=== PATIENT | male | born 1975 ===

== ENCOUNTER 2017-07-04 18:13 | Emergency (ER) | payer MEDICAID ==
--- NOTE | 2017-07-04 19:11 | C.PDOC ---
History Of Present Illness 41 year old female presents to the ED c/o mid abdominal pain for the past 3 days. Patient also states he has been having frequent stool with occasional colro change. Patient describes his pain as dull and crampy. Patient denies fever, chill, nausea, vomit, dysuria, hematuria. Time Seen by Provider: 07/04/17 19:10 Chief Complaint (Nursing): Abdominal Pain History Per: Patient History/Exam Limitations: no limitations Onset/Duration Of Symptoms: Days (3) Current Symptoms Are (Timing): Still Present Severity: None Location Of Pain/Discomfort: Epigastric Radiation Of Pain To:: None Quality Of Discomfort: Dull, Cramping Associated Symptoms: denies: Nausea, Vomiting Exacerbating Factors: None Alleviating Factors: None Recent travel outside of the [place]: No Additional History Per: Patient Past Medical History Reviewed: Historical Data, Nursing Documentation, Vital Signs Vital Signs: Last Vital Signs Temp 98.1 F 07/04/17 18:25 Pulse 77 07/04/17 18:25 Resp 16 07/04/17 18:25 BP 132/81 07/04/17 18:25 Pulse Ox 100 07/04/17 20:46 - Medical History PMH: No Chronic Diseases Surgical History: No Surg Hx Family History: States: Unknown Family Hx - Social History Hx Alcohol Use: No Hx Substance Use: No - Immunization History Hx Tetanus Toxoid Vaccination: No Hx Influenza Vaccination: No Hx Pneumococcal Vaccination: No Review Of Systems Constitutional: Negative for: Fever, Chills Cardiovascular: Negative for: Chest Pain Respiratory: Negative for: Cough, Shortness of Breath Gastrointestinal: Positive for: Abdominal Pain. Negative for: Vomiting, Diarrhea Skin: Negative for: Rash Neurological: Negative for: Weakness, Numbness Physical Exam - Physical Exam Appears: Non-toxic, No Acute Distress Skin: Warm, Dry Head: Normacephalic Eye(s): bilateral: Normal Inspection Oral Mucosa: Moist Neck: Supple Chest: Symmetrical Cardiovascular: Rhythm Regular Respiratory: No Rales, No Rhonchi, No Wheezing Gastrointestinal/Abdominal: Soft, Tenderness (dull crampy mid epigastric), No Guarding, No Rebound Back: Normal Inspection Extremity: Normal ROM, Capillary Refill (< 2 seconds) Extremity: Bilateral: Atraumatic, Normal Color And Temperature Pulses: Left Dorsalis Pedis: Normal, Right Dorsalis Pedis: Normal Neurological/Psych: Oriented x3, Normal Speech Gait: Steady ED Course And Treatment - Laboratory Results Result Diagrams: 07/04/17 19:31 07/04/17 19:31 O2 Sat by Pulse Oximetry: 100 (ON RA) Pulse Ox Interpretation: Normal - CT Scan/US CT abd/pelvis Other Rad Studies (CT/US): Read By Radiologist, Radiology Report Reviewed CT/US Interpretation: IMPRESSION: Cirrhosis with splenomegaly and varices; limited visualization of the pancreatic head,. correlation with enzymes advised to exclude pancreatitis; possible enterocolitis; gastric wall. prominence, true thickening versus underdistention. Additional nonemergent findings as described above. Progress Note: Plan: - CT abd/pelvis. - Labs. - IV fluids. - UA Reevaluation Time: 21:22 Reassessment Condition: Improved Disposition Counseled Patient/Family Regarding: Studies Performed, Diagnosis, Need For Followup - Disposition Referrals: Shanice Delacruz MD [Staff Provider] - Disposition: HOME/ ROUTINE Disposition Time: 19:10 Condition: FAIR Instructions: Pancreatitis (DC), Cirrhosis (DC) Forms: [employer] (Turkish) - Clinical Impression Clinical Impression: Abdominal pain, Pancreatitis, Cirrhosis - Scribe Statement The provider has reviewed the documentation as recorded by the Scribe Dejan Garcia All medical record entries made by the Scribe were at my direction and personally dictated by me. I have reviewed the chart and agree that the record accurately reflects my personal performance of the history, physical exam, medical decision making, and the department course for this patient. I have also personally directed, reviewed, and agree with the discharge instructions and disposition.
[2017-07-04] MEDS ORDERED: Sodium Chloride 0.9% 1,000 ML IV ONE (19:12)
[2017-07-04 19:34] LABS: HEMOGLOBIN 12.7 g/dL (12.0-18.0); MEAN CORPUSCULAR HGB CONC 34.9 g/dL (33.0-37.0); MONO # 1.4 K/uL (0.0-0.8); NRBC % 0.1 % (0.0-2.0); RED CELL DISTRIBUTION WIDTH 16.7 % (11.5-14.5)
[2017-07-04 19:42] LABS: BASO # 0.1 K/uL (0.0-0.2); BASO % 0.7 % (0.0-2.0); EOS # 0.3 K/uL (0.0-0.7); EOS % 3.9 % (0.0-4.0); INR 1.7; LYMPH # 2.9 K/uL (1.0-4.3); LYMPH % 33.7 % (20.0-40.0); MEAN CELL VOLUME 88.6 fL (80.0-94.0); MEAN PLATELET VOLUME 9.1 fL (7.2-11.7); MONO % 16.1 % (0.0-10.0); NEUT # 3.9 K/uL (1.8-7.0); NEUT % 45.6 % (50.0-75.0); PROTHROMBIN TIME 18.3 SECONDS (9.7-12.2); RBC 4.11 Mil/uL (4.40-5.90); WHITE BLOOD COUNT 8.6 K/uL (4.8-10.8)
[2017-07-04 19:43] LABS: SQUAMOUS EPITHIAL < 1 /hpf (0-5); URINE BILIRUBIN NEGATIVE (NEGATIVE); URINE BLOOD NEGATIVE (NEGATIVE); URINE CLARITY Clear (Clear); URINE COLOR Amber (YELLOW); URINE GLUCOSE (UA) NORMAL (Normal); URINE LEUKOCYTE ESTERASE NEG Leu/uL (Negative); URINE PROTEIN NEGATIVE (NEGATIVE)
[2017-07-04 19:50] LABS: ALB/GLOB RATIO 0.7 (1.0-2.1); ALBUMIN 3.1 g/dL (3.5-5.0); ALT/SGPT 139 U/L (21-72); AST/SGOT 189 U/L (17-59); BLOOD UREA NITROGEN 10 mg/dL (9-20); GFR AFRICAN-AMERICAN > 60; GFR NON-AFRICAN AMERICAN > 60; LIPASE 391 U/L (23-300)
--- NOTE | 2017-07-04 20:43 | CT ---
EXAM: CT Abdomen and Pelvis Without Intravenous Contrast EXAM DATE/TIME: 07/04/2017 7:29 PM CLINICAL HISTORY: 41 years old, male; Pain; Abdominal pain; Generalized; Additional info: Abd pain, diarrhea, moucus TECHNIQUE: Axial computed tomography images of the abdomen and pelvis without intravenous contrast. All CT scans at this facility use one or more dose reduction techniques, viz.: automated exposure control; ma/kV adjustment per patient size (including targeted exams where dose is matched to indication; i.e. head); or iterative reconstruction technique. Coronal and sagittal reformatted images were created and reviewed. COMPARISON: There are no prior studies for comparison. FINDINGS: Lung bases: Heart size is normal. There is minimal coronary artery calcification. There is a small hiatal hernia. There is atelectasis/scarring at the lung bases. ABDOMEN: Liver: Hepatic contours are nodular. Gallbladder and bile ducts: Gallbladder is incompletely distended which accentuates the gallbladder wall. Gallbladder wall appears mildly thickened. Common duct is not well demonstrated. Pancreas: Talar body the pancreas are unremarkable. Pancreatic head is poorly defined. Spleen: The spleen is enlarged. Adrenals: There is adrenal thickening bilaterally. Kidneys and ureters: unremarkable Stomach and bowel: Stomach is incompletely distended which accentuates the gastric wall. There is mild duodenal wall prominence. Duodenum is mildly distended. Bowel rotation is normal. Small bowel is mildly distended with air. There is mild fold prominence. Ileocecal region is unremarkable. Appendix and terminal ileum are unremarkable.Colon is incompletely distended which limits evaluation. There is mild colonic wall thickening There is scattered diverticulosis PELVIS: Appendix: See stomach and bowel Bladder: Bladder is incompletely distended. Reproductive: Seminal vesicles and prostate are unremarkable. ABDOMEN and PELVIS: Intraperitoneal space: There is no free air. There is no significant fluid. Bones/joints: There are multiple bilateral old rib fractures There is partial ankylosis of the left sacroiliac joint. There are multiple Schmorl's nodes. Soft tissues: There is a small fat containing umbilical hernia. Vasculature: There are calcified phleboliths. Serpiginous structures in the upper abdomen and posterior mediastinum suggest varices. There may be retroperitoneal varices. Lymph nodes: There is shotty adenopathy. IMPRESSION: Cirrhosis with splenomegaly and varices; limited visualization of the pancreatic head, correlation with enzymes advised to exclude pancreatitis; possible enterocolitis; gastric wall prominence, true thickening versus underdistention Additional nonemergent findings as described above.
[2017-07-04] MEDS ORDERED: Morphine 4 MG/ML VIAL ONE (21:20)
[2017-07-04 21:33] VITALS: BP 124/85; PULSE 80; RESP 18; TEMP 97.8; O2SAT 98
== END 2017-07-04 21:51 | disposition home or self-care (01) ==
LOC: C.ER 18:13
DX: K85.90 Acute pancreatitis without necrosis or infection, unspecified (principal); K74.60 Unspecified cirrhosis of liver; R10.13 Epigastric pain
CPT/HCPCS: 74176; 80053; 81001; 83690; 85025; 85610; 85730; 96361; 96374; 99284; J2270; J7030

== ENCOUNTER 2018-01-20 14:09 | Emergency (ER) | payer MEDICAID ==
[2018-01-20 14:22] VITALS: BMI 32.1
[2018-01-20 14:24] VITALS: BP 134/68; PULSE 78; RESP 18; TEMP 98.5; O2SAT 97
--- NOTE | 2018-01-20 20:47 | C.PDOC ---
History Of Present Illness 42 year old male presents to the ED for evaluation of a resolving penile rash which began around 2 weeks ago. Patient reports slight pain to the area. He admits to being sexually active with women, with occasional protection use. Patient denies fever, chills, vomiting, dysuria, penile discharge. Time Seen by Provider: 01/20/18 14:27 Chief Complaint (Nursing): Male Genitourinary History Per: Patient History/Exam Limitations: no limitations Onset/Duration Of Symptoms: Other (2 weeks ) Current Symptoms Are (Timing): Better Quality Of Discomfort: "Pain" Associated Symptoms: denies: Fever, Chills, Vomiting, Urinary Symptoms Additional History Per: Patient Past Medical History Reviewed: Historical Data, Nursing Documentation, Vital Signs Vital Signs: Last Vital Signs Temp 98.5 F 01/20/18 14:22 Pulse 78 01/20/18 14:22 Resp 18 01/20/18 14:22 BP 134/68 01/20/18 14:22 Pulse Ox 97 01/20/18 14:22 - Medical History PMH: Anemia (IRON DEFICIENCY VIT D DEFICIENCY), Asthma, Fractures (RIBS JAW), Hepatitis (C) Denies: HIV, HTN, Chronic Kidney Disease, Sexually Transmitted Disease Surgical History: No Surg Hx - [facility] Procedures ALCOHOL DETOXIFICATION (08/19/14) CONTINUOUS INVASIVE MECHANICAL VENTILATION =/>96 CONSEC HRS (08/19/14) DETOXIFICATION SERVICES FOR SUBSTANCE ABUSE TREATMENT (08/18/15) DRAINAGE OF PERITONEAL CAVITY, PERCUTANEOUS APPROACH (04/01/17) GROUP CERTIFIED PHARMACY TECHNICIAN FOR SUBSTANCE ABUSE TREATMENT, PSYCHOEDUCATION (04/16/16) INDIV PSYCHOTHERAPY FOR SUBSTANCE ABUSE TREATMENT, SUPPORT (04/16/16) INSERT ENDOTRACHEAL TUBE (08/19/14) MEDS MGMT FOR SUBSTANCE ABUSE TREATMENT, OTH REPL MED (04/16/16) TRANSFUSE NONAUT FROZEN PLASMA IN PERIPH VEIN, PERC (04/01/17) Family History: States: Unknown Family Hx - Social History Hx Tobacco Use: Yes Hx Alcohol Use: No (3 bottle of rum/day) Hx Substance Use: No - Immunization History Hx Tetanus Toxoid Vaccination: No Hx Influenza Vaccination: Yes Hx Pneumococcal Vaccination: No Review Of Systems Constitutional: Negative for: Fever, Chills Gastrointestinal: Negative for: Vomiting Genitourinary: Positive for: Penile Pain. Negative for: Dysuria, Penile Discharge Skin: Positive for: Rash (penile ) Physical Exam - Physical Exam Appears: Non-toxic, No Acute Distress Skin: Normal Color, Warm, Dry Male Genital: No Circumcised, Other (Petechiae noted, area is mildly tender to palpation. no discharge noted ) Extremity: Normal ROM Neurological/Psych: Oriented x3, Normal Speech, Normal Cognition ED Course And Treatment O2 Sat by Pulse Oximetry: 97 Medical Decision Making Medical Decision Making: Progress: On reassessment, patient is resting comfortably, showing no signs of distress and is stable for discharge. Patient is advised to f/u with his PMD within 1-2 days for further evaluation. Advised to return to the ED if symptoms persist or worsen. Disposition - Disposition Referrals: Geovanna Tineo, [Non-Staff] - Disposition: HOME/ ROUTINE Disposition Time: 14:45 Condition: GOOD Additional Instructions: RANDI MILLARD, thank you for letting us take care of you today. The emergency medical care you received today was directed at your acute symptoms. If you were prescribed any medication, please fill it and take as directed. It may take several days for your symptoms to resolve. Return to the Emergency Department if your symptoms worsen, do not improve, or if you have any other problems. Please contact your doctor or call one of the physicians/clinics you have been referred to that are listed on the Patient Visit Information form that is included in your discharge packet. Bring any paperwork you were given at discharge with you along with any medications you are taking to your follow up visit. Our treatment cannot replace ongoing medical care by a primary care provider outside of the emergency department. Thank you for allowing the [facility] team to be part of your care today. Follow up with your primary care doctor early next week for re-evaluation and fu rther management. Prescriptions: Acyclovir [Zovirax] 400 mg PO TID #30 tablet Instructions: Genital Herpes Forms: [employer] (Bermudian) - Clinical Impression Clinical Impression: Rash of penis - PA / BUFFERER / Resident Statement MD/DO has reviewed & agrees with the documentation as recorded. - Scribe Statement The provider has reviewed the documentation as recorded by the Scribe (Afshan Anglin) Provider Attestation: All medical record entries made by the Scribe were at my direction and personally dictated by me. I have reviewed the chart and agree that the record accurately reflects my personal performance of the history, physical exam, medical decision making, and the department course for this patient. I have also personally directed, reviewed, and agree with the discharge instructions and disposition.
== END 2018-01-20 15:03 | disposition home or self-care (01) ==
LOC: C.ER 14:09
DX: R21 Rash and other nonspecific skin eruption (principal)

== ENCOUNTER 2018-03-10 08:06 | Outpatient (CLI) | payer MEDICAID | END 2018-03-10 08:07 | disposition home or self-care (01) | LOC: C.USIC 08:07 ==

== ENCOUNTER 2018-06-28 09:17 | Emergency (ER) | payer MEDICAID | END 2018-06-28 10:00 | disposition home or self-care (01) | LOC: C.ER 09:17 ==